=== PATIENT | male | born 1965 | race Caucasian/White ===

== ENCOUNTER 2017-04-15 13:27 | Emergency (ER) | payer OTHER, MEDICARE, MEDICAID ==
[~2017-04-15] VITALS: Ht 180.3 cm; Wt 62.0 kg
[2017-04-15 13:37] VITALS: BP 109/77
[2017-04-15] MEDS ORDERED: PERCOCET 5MG/325MG TAB PO ONE (14:45)
== END 2017-04-15 14:58 | disposition home or self-care (01) ==
LOC: M ED 13:27
DX: M54.12 Radiculopathy, cervical region (principal); Z72.0 Tobacco use

== ENCOUNTER → 2021-05-03 | Outpatient (REF) ==
--- NOTE | 2021-05-03 20:32 | REP ---
INDICATION: BACK + NECK PAIN COMPARISON: None. TECHNIQUE: AP, lateral, coned-down views of the lumbar spine. FINDINGS: Three views of the lumbosacral spine demonstrate satisfactory alignment and lordosis without acute fracture / compression injury or subluxation. Relatively generalized age-related changes are appreciated with subtle sclerosis to the endplates and very minimal marginal spurring/early osteophyte formation as well as moderate hypertrophic facet changes. Disc space narrowing at L5-S1 suspected as well. IMPRESSION: 1. No acute fracture / compression injury or subluxation. 2. Mild/moderate age-related degenerative changes. Findings include disc space narrowing at L5-S1. <Electronically signed by Nemesio Mathias > 05/03/212028
--- NOTE | 2021-05-03 20:39 | REP ---
INDICATION: BACK + NECK PAIN. COMPARISON: None. TECHNIQUE: AP, lateral, swimmer's, and open-mouth views of the cervical spine. FINDINGS: Straightening of normal lordosis and advanced degenerative changes primarily involving C5-6, C6-7, and C7-T1 including endplate sclerosis, osteophytosis and disc space narrowing. No acute fracture/compression injury or subluxation. Posterior elements and spinous processes are intact. C1-C2 articulation and odontoid process are normal. IMPRESSION: Advanced degenerative spondylosis primarily involving C5-6 through C7-T1 <Electronically signed by Nemesio Mathias > 05/03/21 [id number]
== END ==
LOC: M PLAIMG 12:59
PROVIDERS: ATTEND Internal Medicine
DX: M51.37 Other intervertebral disc degeneration, lumbosacral region (principal); M47.812 Spondylosis without myelopathy or radiculopathy, cervical region; M47.814 Spondylosis without myelopathy or radiculopathy, thoracic region; M54.2 Cervicalgia